=== PATIENT | male | born 1990 | race Caucasian/White ===

== ENCOUNTER 2023-12-10 08:13 | Emergency (ER) | payer BC, SELFPAY ==
--- NOTE | 2023-12-10 08:25 | ED.URI ---
HPI - URI/Sore Throat General Chief Complaint: Upper Respiratory Infection Stated Complaint: SORE THROAT/EARACHE/SINUS Time Seen by Provider: 12/10/23 08:25 Source: patient Mode of arrival: ambulatory Limitations: no limitations History of Present Illness HPI Narrative: 33-year-old male presents with complaint of nasal congestion, sinus pressure, sore throat, postnasal drainage, bilateral ear pressure for 5 days. No coughing. Afebrile. No body aches, chills or fatigue. Has not taking any [id number]-lryvydp medications to treat his symptoms. Patient concern for sinus infection. All systems reviewed and negative except as noted above. Related Data Allergies Allergy/AdvReac Type Severity Reaction Status Date / Time No Known Allergies Allergy Unverified 12/10/23 08:28 Review of Systems Review of Systems: CONSTITUTIONAL: Denies fever, chills, or sweats. EYES: Denies visual changes, redness, or discharge. ENT: Reports rhinorrhea, congestion, sinus pressure, postnasal drainage,sore throat, bilateral ear pressure CARDIOVASCULAR: Denies chest pain, palpitations, or edema. RESPIRATORY: Denies cough or dyspnea. GASTROINTESTINAL: Denies abdominal pain, nausea, vomiting, or diarrhea. GENITOURINARY: Denies dysuria or hematuria. SKIN: Denies rash or itching. MUSCULOSKELETAL: Denies back pain, joint pain, or myalgia. NEUROLOGIC: Denies headache, numbness, or weakness. PSYCHIATRIC: Denies anxiety or depression. All other systems reviewed are negative, except as documented in HPI. PMFSH Comments At time of signature, agree with nursing past medical, surgical, social and family history. There is no relevant family history pertinent to the presenting complaint. Exam Narrative: GENERAL: This is a well-nourished, well-developed patient, in no apparent distress. HEAD: normocephalic, atraumatic. EYES: PERRL. Sclera clear/white. Vision is grossly intact. EARS: External ears normal, auditory canals clear and without drainage, fluid bilateral TMs without erythema or perforation. Hearing grossly intact. NOSE: External nose normal mild congestion, clear nasal drainage with erythema and swelling to bilateral nares. THROAT: Mucous membranes moist, Postnasal drainage without erythema or swelling. No exudates. NECK: Neck supple, non-tender without lymphadenopathy, masses or thyromegaly. CARDIOVASCULAR: Regular rate and rhythm without murmurs, gallops, or rubs. RESPIRATORY: Clear to auscultation. Breath sounds equal bilaterally. No wheezes, rales, or rhonchi. SKIN: warm, Dry, intact with no suspicious lesions or rash, good texture and turgor. NEURO: awake, alert, and oriented to person, place and time. There were no obvious focal neurologic abnormalities. EXTREMITIES: No joint tenderness, effusion, or edema noted. Course Course Level of Care: Express Care Visit Vital Signs Vital signs: Vital Signs Temperature 36.8 C 12/10/23 08:26 Pulse Rate 82 12/10/23 08:26 Respiratory Rate 16 12/10/23 08:26 Blood Pressure 146/79 H 12/10/23 08:26 Pulse Oximetry 98 12/10/23 08:26 Temperature 36.8 C 12/10/23 08:28 Pulse Rate 82 12/10/23 08:28 Respiratory Rate 16 12/10/23 08:28 Blood Pressure 146/79 H 12/10/23 08:28 Pulse Oximetry 98 12/10/23 08:28 Reviewed MDM - URI/Sore Throat MDM Narrative Medical decision making narrative: patient nontoxic. Will recommend treatment for symptoms with [id number] sinus and allergy medications. Patient is aware of diagnosis, understands and agrees to treatment plan. Anticipatory guidance given. Patient agrees to follow-up as directed and is aware of reasons to seek care at the emergency department. Portions of this record may have been created with voice recognition software Differential Diagnosis Differential diagnosis: Likely upper respiratory infection, sinusitis and viral infection Discharge Plan Discharge Clinical Impression: Allergic
[2023-12-10 08:26] VITALS: BP 146/79; PULSE 82; RESP 16; TEMP 36.8; O2SAT 98
[2023-12-10 08:28] VITALS: BP 146/79; PULSE 82; RESP 16; TEMP 36.8; O2SAT 98
== END 2023-12-10 08:42 | disposition home or self-care (01) ==
PROVIDERS: Emergency Provider Nurse Practitioner Family
DX: J30.9 Allergic rhinitis, unspecified (principal)
CPT/HCPCS: 99213; G0463

== ENCOUNTER 2024-11-28 08:38 | Emergency (ER) | payer BC, SELFPAY ==
--- NOTE | 2024-11-28 08:43 | ED_ITS ---
HPI - URI/Sore Throat General Chief Complaint: Upper Respiratory Infection Stated Complaint: Cough Time Seen by Provider: 11/28/24 08:50 Source: patient Mode of arrival: ambulatory Limitations: no limitations History of Present Illness HPI Narrative: Jayme is a 34-year-old male patient presenting to the clinic today with complaints of cough, chest congestion, sore throat, and runny nose. He reports symptoms started approximately 3-4 days ago. Has a productive cough with some yellow phlegm. Denies any shortness of breath or chest pain at this time. No fever. Related Data Allergies Allergy/AdvReac Type Severity Reaction Status Date / Time No Known Allergies Allergy Verified 11/28/24 08:52 Review of Systems Review of Systems: Pertinent positives per HPI. Patient denies any fever, chills, rash, headache, visual changes, dizziness, shortness of breath, chest pain, palpitations, nausea, vomiting, diarrhea, constipation, abdominal pain, or any urinary issues. PMFSH Comments At the time of my signature, I reviewed and agree with the nursing past medical, surgical, social, and family history. There is no relevant family history pertinent to the patient complaint. Exam Narrative: General: Well-developed, obese, in no apparent distress Head: Normocephalic, atraumatic Eyes: Pupils equally round and reactive to light bilaterally, EOM intact, sclera and conjunctive clear, no discharge, lids normal Ears: TMs intact and clear, ear canals clear, no drainage, grossly hearing normal. Nose: Nares patent, no discharge, no inflammation, no sinus tenderness. Mouth: Oral pharynx without lesions or masses, good dentition, MMM. Neck: Supple, trachea midline, no enlargement of anterior or posterior cervical nodes, no thyroid masses or goiter palpable. Cardio: Regular rate and rhythm, s1 and s2 normal, no murmur appreciated. Resp: Inspiratory and expiratory wheezing, no rhonchi, rales, or rubs Course Course Emergency Course: Portions of this record may have been created with voice recognition software. Level of Care: Express Care Visit Vital Signs Vital signs: Vital Signs Oxygen Delivery Room Air 11/28/24 08:48 Temperature 37.2 C 11/28/24 08:49 Pulse Rate 98 11/28/24 08:49 Respiratory Rate 16 11/28/24 08:49 Blood Pressure 138/82 11/28/24 08:49 Pulse Oximetry 96 11/28/24 08:49 Oxygen Delivery Room Air 11/28/24 08:48 Vital signs reviewed MDM - URI/Sore Throat MDM Narrative Medical decision making narrative: At the time of visit patient is resting comfortably on the exam table. Patient appears to be nontoxic. Labs: Strep test was negative in the clinic today. We will send strep for culture. Plan: I suspect patient has URI/bronchitis. Prescription for prednisone and albuterol inhaler was sent to the pharmacy. Supportive measures were discussed with the patient and they voiced understanding discharge instructions and agrees to treatment plan. Return precautions reviewed Differential Diagnosis Differential diagnosis: Likely upper respiratory infection, otitis media, sinusitis, viral infection, bronchitis, influenza, pharyngitis and other (COVID) Lab Data Labs: Lab Results 11/28/24 Range/Units 09:06 POC Grp A Strep Screen Pending Discharge Plan Discharge Clinical Impression: Bronchitis Pharyngitis Qualifiers: Pharyngitis/tonsillitis etiology: unspecified etiology Qualified Code(s): J02.9 - Acute pharyngitis, unspecified Upper respiratory infection Qualifiers: URI type: unspecified URI Qualified Code(s): J06.9 - Acute upper respiratory infection, unspecified Patient Disposition: Home, Self-Care Condition: Stable Instructions: Antibiotic Form, Pharyngitis (ED), Acute Bronchitis (ED), Cold Symptoms (ED) Additional Instructions: Strep test was negative in the clinic today. We will send strep for culture. Take prescription medications only as prescribed-prednisone and albuterol inhaler Increase fluids and stay well hydrated Tylenol/motrin for pain/fever Flonase and OTC antihistamines as directed Vicks vapor rub to open sinuses Sinus rinses for congestion Cepacol spray, cough drops, throat lozenges, warm tea with honey/lemon, gargle salt water to soothe throat BRAT diet for diarrhea Clear liquids x 24 hours then advance as tolerated for nausea/vomiting Go to the ED if you develop a worsening in your condition- high fever not controlled by Tylenol or Motrin, dehydration, weakness, lethargy, shortness of breath, or chest pain. Follow up with your PCP in 3-5 days if symptoms persist. Patient Language: [place] Prescriptions: New prednisone 20 mg tablet 40 mg PO DAILY 5 Days Qty: 10 0RF albuterol sulfate 90 mcg/actuation HFA aerosol inhaler 2 puff inhalation Q4-6H PRN (Reason: shortness of breath or wheezing) 30 Days Qty: 8.5 0RF Follow-up/Referrals: PHYSICIAN,PROTOZOOLOGIST [Primary Care Provider] - Stand Alone Forms: Work/School Release IP Time of Disposition: 09:09 Quality NIHSS Nursing Documentation ED NIHSS nursing documentation: reviewed/agree
[2024-11-28 08:49] VITALS: BP 138/82; PULSE 98; RESP 16; TEMP 37.2; O2SAT 96
[2024-11-28 09:07] LABS: EDSTREPNEGPOS1 Negative (Negative)
== END 2024-11-28 09:12 | disposition home or self-care (01) ==
PROVIDERS: Emergency Provider Nurse Practitioner Family
DX: J40 Bronchitis, not specified as acute or chronic (principal); J02.9 Acute pharyngitis, unspecified; J06.9 Acute upper respiratory infection, unspecified
CPT/HCPCS: 87081; 87880; 99213; G0463